=== PATIENT | male | born 1985 | race Caucasian/White ===

== ENCOUNTER → 2017-08-15 | Outpatient (REF) | payer BC ==
[~2017-08-15] MED LIST: ACET500L35 PO; MULT-820 PO; ONDA4TAB PO; [UNRECOGNIZED DRUG - REMARK]
[2017-08-15 11:26] LABS: PLATELET COUNT, AUTOMATED 238 K/uL (150-450)
== END ==
LOC: ZZSENDIN 11:09
PROVIDERS: ATTEND Nurse Practitioner Family
DX: R10.9 Unspecified abdominal pain (principal)
CPT/HCPCS: 82040; 82150; 82247; 82310; 82374; 82435; 82565; 82947; 83690; 84075; 84132; 84155; 84295; 84450; 84460; 84520; 85025